=== PATIENT | female | born 1975 | race American Indian/Alaskan Native ===

== ENCOUNTER 2019-05-30 07:41 | Emergency (ER) | payer OTHER, BC ==
[2019-05-30 07:49] VITALS: BP 131/87
[2019-05-30] MEDS ORDERED: FLEXERIL PO ONE (09:21)
[2019-05-30] MEDS ORDERED: IBUPROFEN PO ONE (09:21)
[2019-05-30] MEDS ORDERED: PERCOCET 5/325 PO ONE (09:21)
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
== END 2019-05-30 10:05 | disposition home or self-care (01) ==
LOC: ED 07:41
DX: R07.89 Other chest pain (principal); M54.2 Cervicalgia; M54.9 Dorsalgia, unspecified; V49.49XA Driver injured in collision with other motor vehicles in traffic accident, initial encounter; Y93.89 Activity, other specified; Y92.410 Unspecified street and highway as the place of occurrence of the external cause; Y99.8 Other external cause status